=== PATIENT | male | born 1940 | race African-American/Black ===

== ENCOUNTER 2020-08-18 14:06 | Inpatient (IN) ==
[2020-08-18] MEDS ORDERED: ETOMIDATE 20 MG/10 ML VIAL IV ONE (14:31)
[2020-08-18] MEDS ORDERED: ROCURONIUM 100 MG/10 ML VIAL IV ONE (14:31)
[2020-08-18 14:34] LABS: Basophils % 0.2 % (0.0-0.8); Eosinophils # 0.1 10*3/uL (0.0-0.87); Eosinophils % 0.8 % (0.00-10.9); Hematocrit 35.4 VOL% (42.0-52.0); Hemoglobin 11.2 GM/DL (14.0-18.0); Immature Granulocytes % 0.8 %; Immature Granulocytes Absolute 0.05 #; Lymphocytes # 1.1 10*3/uL (1.4-4.0); Lymphocytes % 17.8 % (21.2-54.2); Mean Corpuscular HGB Conc 31.6 GM/DL (32-36); Mean Corpuscular Volume 93.9 FL (87-102); Mean Platelet Volume 10.9 FL (9.6-12.0); Monocytes % 7.7 % (1.7-12.7); Neutrophils % 72.7 % (38.7-73.9); Platelet Count 196 T/CUMM (130-400); Red Blood Count 3.77 MC/CUMM (3.8-5.5); Red Cell Distribution Width 14.7 % (9.3-17.3); White Blood Count 6.3 T/CUMM (4-12)
[2020-08-18 14:59] LABS: Alanine Aminotransferase 19 U/L (16-61); Albumin 3.2 G/DL (3.4-5.0); Alkaline Phosphatase 78 U/L (45-117); Aspartate Amino Transferase 27 U/L (0-37); Bilirubin,Total < 0.39 MG/DL (0.2-1.0); Blood Urea Nitrogen 28 MG/DL (7-18); Calcium 8.8 MG/DL (8.5-10.1); Carbon Dioxide 17 MMOL/L (21-32); Estimated Glom Filtration Rate 24 ML/MIN; Glucose 337 MG/DL (74-106); Potassium 3.8 MMOL/L (3.5-5.1); Sodium 143 MMOL/L (136-145); Total Protein 6.4 G/DL (6.4-8.2)
[2020-08-18] MEDS ORDERED: DOPamine 800 MG/250 ML PREMIX IV ONE (15:01)
[2020-08-18 15:25] LABS: PT Patient Result 10.9 SECS (9.8-11.9)
[2020-08-18 15:27] LABS: Partial Thromboplastin Time 20.2 SECS (23.9-33.8)
[2020-08-18] MEDS ORDERED: ETOMIDATE 20 MG/10 ML VIAL IV STA (15:27)
[2020-08-18] MEDS ORDERED: ROCURONIUM 100 MG/10 ML VIAL IV STA (15:28)
[2020-08-18 15:29] LABS: Bilirubin,Urine Negative (Negative); Blood, Urine Negative (Negative); Glucose,Urine (UA) Negative (Negative); Ketones,Urine Negative (Negative); Mucus,Urine Occasional /LPF (Occasional); Nitrite,Urine Negative (Negative); Protein,Urine 30 MG/DL; RBC,Urine 1 /HPF (0-4); Squamous Epithelial Cell,Urine Occasional /HPF (0-10); Urine Appearance CLEAR (Clear); Urine Color Yellow (Yellow); Urine Urobilinogen < 2.0 EU/DL (0.2-1.0); WBC,Urine 2 /HPF (0-6)
[2020-08-18] MEDS ORDERED: LACTATED RINGERS 2,000 ML IV ONE (15:32)
[2020-08-18] MEDS ORDERED: DOPamine 800 MG/250 ML PREMIX IV PRN ×2 (15:33→17:10)
[2020-08-18 15:35] LABS: Barbiturates Screen,Urine Negative (Negative); Benzodiazepines Screen,Urine Negative (Negative); Cannabinoid Screen,Urine Negative (Negative); Opiate Screen,Urine Negative (Negative); Phencyclidine Screen,Urine Negative (Negative)
[2020-08-18] MEDS ORDERED: ATROPINE 1 MG/10 ML SYRINGE IV STA (15:36)
[2020-08-18 17:05] LABS: ABG Base Excess -14.5 MMOL/L (-2.5-2.5); ABG HCO3 13.1 MMOL/L (20-26); ABG Oxygen Saturation 76.3 % (95-100); ABG PCO2 40.2 MM HG (35-48); ABG PO2 55.5 MM HG (80-95); ABG TCO2 13.1 MMOL/L (23-27)
[2020-08-18] MEDS ORDERED: GLUCAGON 1 MG VIAL IM PRN (17:14)
[2020-08-18] MEDS ORDERED: DEXTROSE 50% 25 GM/50 ML VIAL IV PRN (17:14)
[2020-08-18] MEDS ORDERED: ONDANSETRON 4 MG/2 ML VIAL IV PRN (17:14)
[2020-08-18] MEDS ORDERED: PIPERACILLIN/TAZOBACTAM 3,375 MG in SODIUM CHLORIDE 0.9% 100 ML IV SCH (17:30)
[2020-08-18] MEDS ORDERED: NOREPINEPHRINE 8 MG in SODIUM CHLORIDE 0.9% 242 ML IV PRN (17:56)
[2020-08-18] MEDS ORDERED: NOREPINEPHRINE 4 MG/4 ML VIAL IV ONE (18:00)
[2020-08-18 18:44] VITALS: BP 84/42
[2020-08-18] MEDS ORDERED: VANCOMYCIN INJ 1,500 MG in SODIUM CHLORIDE 0.9% 500 ML IV ONE (20:00)
== END 2020-08-18 19:03 | disposition expired | DRG 296 ==
LOC: EDUNIT# → EDBD → N.ED 14:06 → N.EDINP 17:14 → N.ICU 18:11
PROVIDERS: ADMIT Internal Medicine; ATTEND Internal Medicine